=== PATIENT | female | born 1985 | race Caucasian/White ===

== ENCOUNTER 2021-11-20 07:53 | Day surgery (SDC) | payer OTHER, SELFPAY ==
[2021-11-20] VITALS (19 sets, daily range): BP systolic 84–132; BP diastolic 41–91; PULSE 75–104; RESP 16–20; TEMP 36–36.7; O2SAT 91–97; BMI 36.6
[2021-11-20] MEDS: LACTATED RINGERS 1000 ML 1,000 ML 100 ML IV (08:30)
[2021-11-20] MEDS: SODIUM CHLORIDE 0.9 % (FLUSH) 10 ML SYRINGE IVF (08:57)
--- NOTE | 2021-11-20 08:58 | SUR.PREOP ---
applied calming aromatherapy patch. pt routinely uses essential oils at home.
[2021-11-20 09:08] LABS: Ur HCG Qualitative* Negative (Negative)
--- NOTE | 2021-11-20 09:24 | PM.PROC ---
Procedure Note Time Seen by Provider: 09:10 Date Seen: 11/20/21 Date of procedure: 11/20/21 Will [facility] bill your pro fee for this procedure?: Yes Procedure Description: Preoperative diagnosis: 36-year-old 2 para 2 menometrorrhagia Postoperative diagnosis: Same Procedure: Total laparoscopic hysterectomy, bilateral salpingectomy, diagnostic cystoscopy, peritoneal biopsy.. Anesthesia: General endotracheal, local Surgeon: Francisca Christensen MD Assist: Brandy Mcqueen MD Estimated blood loss: 75mL. IV Fluid: 2200 mL Urine output: 50mL Drains: Mckinney to gravity Specimen: Uterus and bilateral fallopian tubes to pathology. Findings: On exam under anesthesia: The uterus was midposition, approximately 10-12 week size, mobile without nodularity or masses palpable. Adnexa without mass or fullness palpable. On laparoscopy: Uterus appeared enlarged otherwise normal. Fallopian tubes and ovaries appeared normal. Appendix, and liver edge appeared normal. Procedure: Halie was taken to the operating room where general anesthetic was found to be adequate. She was placed in the dorsal lithotomy position and an exam under anesthesia was performed with findings stated above. She was then prepped and draped in a normal sterile manner. A Mckinney catheter was placed. A bivalve speculum was placed in the vaginal canal. A long Allis clamp was placed on the anterior lip of the cervix, in the uterus sounded to 12 cm. A extra large VCare uterine manipulator was then placed. The Allis clamp and speculum were removed from the cervix. Attention was then turned to performing the laparoscopic portion of the procedure. All incisions were infiltrated with 0.25% Marcaine prior to incising the skin. A vertical, infraumbilical 1 cm incision was made. An 11 mm trocar was then placed under direct visualization. The abdomen was then insufflated with CO2 gas to a pressure of 15 mm of mercury. Two,, pelvic ports were then placed approximately 3-4 finger breaths medial to the ischial crests. The trocar in the RLQ = 5mm, LLq = 11mm. These were placed under direct visualization. Attention was then turned to performing the hysterectomy. Both ureters were visualized in the normal position bilaterally. The left fallopian tube was grasped and removed with sequential pedicles using the dissecting, PowerSeal blunt tip dissecting forceps. The left side of the hysterectomy was performed using the PowerSeal dissecting forceps. The 1st pedicles were starting with the broad ligament that was cauterized and and bisected. In sequence show pedicles were formed to divide the utero-ovarian ligament. Then sequential pedicles were made through the broad ligament. The posterior leaf of the broad ligament was then divided and sequential pedicles carried down to the level of the VCare cup. The anterior leaf of the broad ligament was then divided down to the level of the anterior aspect of the VCare cup and a bladder flap created. Prior to dividing the uterine vessels on the right side there is noted to be a bleb tissue in the right lower quadrant superior to the broad ligament on the pelvic sidewall that was removed sent to pathology The uterine vessels were then skeletonized. The uterine vessels were then cauterized and divided. Then excess tissue was cleared over the top of the VCare cup using the dissecting forceps. The right salpingectomy and right side of the hysterectomy were then performed in a similar manner. The Ligasure Valleylab pen with the spatula attachment was then used to perform the colpotomy incising around the VCare cup. The uterus was removed and the fundus placed in the vaginal canal to maintain insufflation. The vaginal cuff was then reapproximated using 2-0 V lock suture in a running manner. All the pedicles and vaginal cuff were then closely visualized and hemostasis obtained with bipolar cautery using the ligasure dissecting forceps or the Valleylab pen with the spatula. The the uterus was removed from the vaginal canal and sent to pathology. The Mckinney catheter was briefly removed. A diagnostic cystoscopy was performed using normal saline as the insufflation medium. The dome of the bladder was noted to be without injury and no evidence of any sutures from the vaginal cuff causing injury. Normal urine flow was noted through both ureteral orifices. Fluorescein IV was used to visualize the urine more easily. The Mckinney catheter was then replaced. Attention was then returned to the abdomen where hemostasis was verified. Pricilla was applied to the vaginal cuff. The CO2 pressure decreased to 8mmHG and hemostasis verified. The fascia in the LLQ incision was approximated with 0-Vicryl suture using the [place] fascial closure device. This was closed under direct visualization with the laparoscope. The fascia in the umbilical incision was reapproximated using 0 Vicryl on a UR 6 needle. All trocars were removed under direct visualization. CO2 gas was allowed to escape the infraumbilical port prior to its removal. All skin incisions were re-approximated using 4-0 Monocryl in a running subcuticular manner, Exophin skin adhesive gel and adhesive bandages placed. The patient tolerated this procedure well. Sponge, lap and instrument counts were correct x2 at the end of the procedure and the patient was taken to the recovery area in stable condition. The patient received 2gm IV ancef prior to the start of the procedure. 30 mg IV Toradol given at the end of the procedure prior to awaking the patient from anesthesia. Surgeon: Francisca Christensen MD
--- NOTE | 2021-11-20 10:16 | P.NB_ITS ---
Nerve Block Nerve Block Time Seen by Provider: 09:40 Date Seen: 11/20/21 Type of block requested by surgeon for post-operative analgesia: TAP Side: bilateral Time out performed: Yes Verification of patient name: Yes Verification of date of : Yes Site marking: site marked Name of person performing procedure: Daryl Continuous monitoring Was continuous monitoring of O2 sat, B/P, fast food restaurant manager, recorded every 15 minutes?: Yes Procedure Checklist: sterile prep, needles and gloves Ultrasound guided. Images saved: Yes Medications given in 5ml increments after negative aspiration: Marcaine %: 0.25 mL: 30 Needle gauge: 20 and Exparel mL: 10 Patient tolerated procedure well: Yes Additional comments: Needle noted adjacent to nerve
[2021-11-20] MEDS: CEFAZOLIN 2 GM in 0.9 % SODIUM CHLORIDE Mini-bag 100 ML IVPB (12:07)
--- NOTE | 2021-11-20 12:23 | W.ANESCHARGE ---
Anesthesia Charges Start Date/Time Anesthesia Start Date: 11/20/21 Anesthesia Start Time: 09:35 Stop Date/Time Anesthesia Stop Date: 11/20/21 Anesthesia Stop Time: 12:14 Summary Emergency: No
[2021-11-20] MEDS: fentaNYL 100 MCG/2 ML inj 50 MCG IVP ×3 (12:25→12:38)
--- NOTE | 2021-11-20 13:09 | SUR.PHASEI ---
Pt came to PACU with knutson intact draining clear yellow urine HAVING CRAMPING LIKE A PERIOD PAIN MEDS GIVEN VITALS STABLE DID NOT DRAIN KNUTSON TO HAVE MED/SURG DRAIN IT FOR THEIT I AND O AT END OF SHIFT
[2021-11-20] MEDS: HYDROmorphone 0.5 mg/0.5 ml inj IVP (13:10)
[2021-11-20] MEDS: LORazepam 2 MG/ML inj IVP ×2 (13:40→19:50)
[2021-11-20] MEDS: OXYCODONE 5 MG TABLET PO ×2 (14:35→19:50)
--- NOTE | 2021-11-20 15:08 | W.ANESCHARGE ---
Anesthesia Charges Start Date/Time Anesthesia Start Date: 11/20/21 Anesthesia Start Time: 09:35 Stop Date/Time Anesthesia Stop Date: 11/20/21 Anesthesia Stop Time: 12:14 Summary Emergency: No
[2021-11-20] MEDS: LACTATED RINGERS 1000 ML 1,000 ML 125 ML IV ×2 (16:48→22:12)
--- NOTE | 2021-11-20 17:00 | P.GYNPRC_ITS ---
Procedure Note Date Seen: 11/20/21 Procedure Details: PREOPERATIVE DIAGNOSIS: Menometrorrhagia POSTOPERATIVE DIAGNOSIS: Menometrorrhagia PROCEDURE: Total laparoscopic hysterectomy. Bilateral salpingectomies. Diagnostic cystoscopy. Peritoneal biopsy. SURGEON: Amparo CHIEF MARKETING OFFICER: Richar ANESTHESIA: General endotracheal COMPLICATIONS: None ESTIMATED BLOOD LOSS: See operative report by Dr. Christensen FINDINGS: See operative report by Dr. Christensen PROCEDURE NOTE: Please see the operative report by Dr. Nel Francis for full details of the procedure. I was asked to assist. I was scrubbed in for the entire procedure until closure of the abdominal incisions. I provided assistance with laparoscopic port placement, lysis of adhesions, visualization and retraction, and with the hysterectomy and bilateral salpingectomies from the right side, as well as with hemostasis and closure of the vaginal cuff.
[2021-11-20] MEDS: KETOROLAC 30 MG/ML inj IVP (18:29)
--- NOTE | 2021-11-20 19:46 | PC.NURSE ---
pt to floor at 1300. tolerating reg diet. has not been out of bed. c/o abd pain, see emar. soft pressures when pt arrived to the floor, BP has been stable, 110s/60s. Other VS WNL. Lap sites to abd glued, no drainage or signs of infection. knutson cath in place, patent and draining yellow urine. Delfin, Mom and Daughter have been in to visit with patient.
[2021-11-20] MEDS: ENOXAPARIN 40 MG/0.4 ML INJ SUBCUT (22:10)
[2021-11-21] MEDS: OXYCODONE 5 MG TABLET PO ×3 (00:39→09:52)
[2021-11-21] MEDS: KETOROLAC 30 MG/ML inj IVP (00:39)
[2021-11-21] MEDS: LACTATED RINGERS 1000 ML 1,000 ML 125 ML IV (00:40)
[2021-11-21] MEDS: IBUPROFEN 600 MG TABLET PO (05:56)
[2021-11-21] MEDS: HYDROmorphone 0.5 mg/0.5 ml inj IVP (06:17)
--- NOTE | 2021-11-21 06:31 | PC.NURSE ---
Alert and oriented x4. Vitals stable. Pain managed with Dilaudid and Oxycodone. Mckinney out early this AM. Ambulated on the hallway but distance limited due to pain. Excruciating pain managed with Dilaudid. Denies further concerns at the moment
[2021-11-21 07:00] VITALS: PULSE 78; RESP 16
[2021-11-21 07:30] VITALS: BP 110/79; PULSE 78; RESP 16; TEMP 36.7; O2SAT 97
[2021-11-21] MEDS: FLUOXETINE HCL 20 MG CAPSULE PO (09:53)
--- NOTE | 2021-11-21 10:01 | PC.NURSE ---
Addendum entered by Shraddha Kowalski RN 11/21/21 11:13: Pt. discharged at 1035. Belongings form and discharge instructions given and signed. Pt. verbalized understanding. Pt. ambulated off unit w/spouse to home. Original Note: Pt. alert and oriented, pleasant and cooperative. Pt. rated pain 4/10. PRN oxy administered before discharging. IV intact and removed at 0930. Vitals stable. Pt. requested to use Abd binder. Voided this AM. Ambulated to bathroom w/no assistance and tolerated well.
== END 2021-11-21 10:35 | disposition home or self-care (01) ==
LOC: OR 12:03 → MEDSURG 12:50
PROVIDERS: PCP Internal Medicine; Visit Provider Obstetrics & Gynecology
PROC: 0UT94ZZ Resection of Uterus, Percutaneous Endoscopic Approach (ICD-10-PCS; CPT 58571; principal; 2021-11-20 09:25)
DX: N92.1 Excessive and frequent menstruation with irregular cycle (principal); N72 Inflammatory disease of cervix uteri; N83.8 Other noninflammatory disorders of ovary, fallopian tube and broad ligament
CPT/HCPCS: 58571; 00840; 36415; 64488; 76942; 81025; 85018; 86850; 86900; 86901; 88305; 88307; A9270; J0330; J0690; J1100; J1170; J1650; J1885; J2060; J2704; J3010; J7120

== ENCOUNTER 2022-08-05 15:11 | Outpatient (CLI) | payer OTHER, SELFPAY | END 2022-08-05 15:12 | disposition home or self-care (01) | LOC: NFLDREF 08-06 12:29 | PROVIDERS: PCP Internal Medicine; Referring Provider Internal Medicine; Visit Provider Student in an Organized Health Care Education/Training Program | DX: Z20.822 Contact with and (suspected) exposure to COVID-19 (principal); J02.9 Acute pharyngitis, unspecified | CPT/HCPCS: 87651 ==

== ENCOUNTER 2023-07-06 15:15 | Emergency (ER) | payer BC, SELFPAY ==
[2023-07-06 15:23] VITALS: BP 133/75; PULSE 100; RESP 16; TEMP 37.9; O2SAT 97; BMI 30.7
--- NOTE | 2023-07-06 15:36 | ED_ITS ---
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 Last 3 days she has had 2nd chills dry cough body aches flu-like illness. She has had no shortness of breath no chest pain. She has had history of pulmonary embolus in the past but has had no breathing difficulty as mention. Patient denies skin rash denies nuchal rigidity. She apparently had a temp up to 103 but do here is 100.3 with ibuprofen on board. No dysuria, frequency, vomiting. Related Data Home Medications Medication Instructions Recorded Confirmed Collagen PO 11/06/21 08/14/22 ascorbic acid (vitamin C) 250 mg 250 mg PO DAILY 11/06/21 08/14/22 tablet Previous Rx's Medication Instructions Recorded ibuprofen 600 mg tablet 600 mg PO Q6H #30 tabs 11/20/21 hydrocodone 7.5 mg-acetaminophen 1 tab PO Q8H PRN pain #14 tabs 07/06/23 325 mg tablet oseltamivir 75 mg capsule (Tamiflu) 75 mg PO BID 5 days #10 caps 07/06/23 Allergies Allergy/AdvReac Type Severity Reaction Status Date / Time No Known Allergies Allergy Verified 07/06/23 15:21 Review of Systems Status of ROS: Reports: 6 or more systems reviewed and unremarkable except as noted in History and below [facility] Medical History History of pulmonary embolism (2013) ?Z86.711 - Personal history of pulmonary embolism (ICD-10) History of pre-eclampsia ?Z87.59 - Personal history of other complications of , childbirth and the puerperium (ICD-10) Atypical glandular cells on cervical Pap smear (02/02/15) ?R87.619 - Unspecified abnormal cytological findings in specimens from cervix uteri (ICD-10) Prothrombin gene mutation ?D68.52 - Prothrombin gene mutation (ICD-10) Vertigo ?R42 - Dizziness and giddiness (ICD-10) Uterine leiomyoma ?D25.9 - Leiomyoma of uterus, unspecified (ICD-10) Obesity with body mass index greater than 30 ?E66.9 - Obesity, unspecified (ICD-10) Menorrhagia with irregular cycle ?N92.1 - Excessive and frequent menstruation with irregular cycle (ICD-10) Hyperlipidemia (2019) ?E78.5 - Hyperlipidemia, unspecified (ICD-10) History of pulmonary embolism (2013) ?Z86.711 - Personal history of pulmonary embolism (ICD-10) History of pre-eclampsia ?Z87.59 - Personal history of other complications of , childbirth and the puerperium (ICD-10) Generalized anxiety disorder (2013) ?F41.1 - Generalized anxiety disorder (ICD-10) Dysfunctional uterine bleeding ?N93.8 - Other specified abnormal uterine and vaginal bleeding (ICD-10) Cyst of vagina ?N89.8 - Other specified noninflammatory disorders of vagina (ICD-10) Atypical glandular cells on cervical Pap smear (02/02/15) ?R87.619 - Unspecified abnormal cytological findings in specimens from cervix uteri (ICD-10) Surgical History Status post laparoscopic hysterectomy (11/20/21) ?Z90.710 - Acquired absence of both cervix and uterus (ICD-10) History of colposcopy (2015) ?Z98.890 - Other specified postprocedural states (ICD-10) History of colposcopy (2016) ?Z98.890 - Other specified postprocedural states (ICD-10) Social History Narrative: medical receptionist assistant. Nonsmoker and very little alcohol use. Smoking Status: Never smoker How often do you have a drink containing alcohol: 2-4 times a month AUDIT-C Alcohol total score: 2 Non-prescribed substance use: denies use and marijuana (any form) Exam Narrative: Exam Narrative: Objective: Temperature 100.2?, vital signs as written Alert orient x3 mild distress an illness noncyanotic HEENT is unremarkable no facial asymmetry mouth clear throat clear Neck is supple Chest is clear no rales or wheezing Heart rhythm regular without murmur Abdomen soft nontender Extremities are no edema neurologic nonfocal Skin no rash Const: Vital Signs, click to edit/add: Vital Signs - 24 hr 07/06/23 15:23 07/06/23 15:50 07/06/23 16:00 Temperature 100.2 F H Pulse Rate 101 H Pulse Rate [Pulse Oximeter] 100 98 Respiratory Rate 16 Blood Pressure 119/73 Blood Pressure [Ri ght Upper Arm] 133/75 Pulse Oximetry 97 92 95 Oxygen Delivery Me thod Room Air Room Air 07/06/23 16:30 Temperature Pulse Rate 86 Pulse Rate [Pulse Oximeter] Respiratory Rate Blood Pressure 119/66 Blood Pressure [Ri ght Upper Arm] Pulse Oximetry 91 Oxygen Delivery Me thod Course Vital Signs Vital signs: Initial Vital Signs Temperature 100.2 F H 07/06/23 15:23 Temperature Source Temporal Artery Scan 07/06/23 15:23 Pulse Rate 100 07/06/23 15:23 Respiratory Rate 16 07/06/23 15:23 Blood Pressure 133/75 07/06/23 15:23 Blood Pressure Mean 94 07/06/23 15:23 Blood Pressure Position Semi-Fowlers 07/06/23 15:23 Pulse Oximetry 97 07/06/23 15:23 Oxygen Delivery Method Room Air 07/06/23 15:23 Vital Signs Temperature 100.2 F H 07/06/23 15:23 Pulse Rate 100 07/06/23 15:23 Respiratory Rate 16 07/06/23 15:23 Blood Pressure 133/75 07/06/23 15:23 Pulse Oximetry 97 07/06/23 15:23 Oxygen Delivery Method Room Air 07/06/23 15:23 Temperature 100.2 F H 07/06/23 15:23 Pulse Rate 86 07/06/23 16:30 Respiratory Rate 16 07/06/23 15:23 Blood Pressure 119/66 07/06/23 16:30 Pulse Oximetry 91 07/06/23 16:30 Oxygen Delivery Method Room Air 07/06/23 15:50 Medications Administered Medications: Discontinued Medications Generic Name Dose Route Start Last Admin Trade Name Freq PRN Reason Stop Dose Admin Hydrocodone Bitart/Acetaminophen 1 tab 07/06/23 15:29 07/06/23 15:38 Hydrocodone/Acetamin 7.5-325 Tablet PO 07/06/23 15:30 1 tab ONCE ONE Administration Oseltamivir Phosphate 75 mg 07/06/23 15:29 07/06/23 15:38 Oseltamivir Phosphate 75 Mg Capsule PO 07/06/23 15:30 75 mg ONCE ONE Administration Medical Decision Making MDM Narrative Medical decision making narrative: [age] 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 I suspect she has influenza a. I think even if her tests are negative I would treat her with Tamiflu given she has only been sick for a couple of days I would give her 75 b.i.d. x5 days. Will give her [place] 7.5 mg now and allow her to have 14 of these at home, may use ibuprofen as well. Avoid Tylenol with the [place]. Recommend careful observation fluids and off work until better for couple of days. Recheck with regular doctor as needed, return to ED problems or concerns. Lab Data Labs: Lab Results 07/06/23 Range/Units 15:34 SARS-CoV-2 (PCR) Negative SARS-CoV-2 (Negative) Influenza Type A (PCR) Negative PCR FLU A (Negative) Influenza Type B (PCR) POSITIVE PCR FLU B A (Negative) RSV (PCR) Negative PCR RSV (Negative) Discharge Plan Discharge Clinical Impression: Influenza-like illness Patient Disposition: Home w/ Parent or Adult Condition: Stable Additional Instructions: Rest, fluids, [place] as needed for discomfort, may use ibuprofen as well. Recommend Tamiflu for 5 days. Recommend off work until your feeling well for a couple of days, update regular doctor as needed, return to ED as needed. Activity Level: Light activity Discharge Diet: Regular Prescriptions: New oseltamivir [Tamiflu] 75 mg capsule 75 mg PO BID 5 Days Qty: 10 0RF hydrocodone-acetaminophen 7.5-325 mg tablet 1 tab PO Q8H PRN (Reason: pain) Qty: 14 0RF No Action ascorbic acid (vitamin C) 250 mg tablet 250 mg PO DAILY Collagen powder PO ibuprofen 600 mg Tablet 600 mg PO Q6H Qty: 30 0RF Follow Up/Referrals: Edda Russ MD [Primary Care Provider] - Stand Alone Forms: PowerDMS Info Instructions
[2023-07-06] MEDS: OSELTAMIVIR PHOSPHATE 75 MG CAPSULE PO (15:38)
[2023-07-06] MEDS: HYDROCODONE/ACETAMIN 7.5-325 TABLET 1 TAB PO (15:38)
[2023-07-06 15:50] VITALS: PULSE 98; O2SAT 92
[2023-07-06 16:00] VITALS: BP 119/73; PULSE 101; O2SAT 95
[2023-07-06 16:28] LABS: PCR FLU A Negative PCR FLU A (Negative); PCR FLU B POSITIVE PCR FLU B (Negative); PCR RSV Negative PCR RSV (Negative); SARS PCR* Negative SARS-CoV-2 (Negative)
[2023-07-06 16:30] VITALS: BP 119/66; PULSE 86; O2SAT 91
== END 2023-07-06 16:37 | disposition home or self-care (01) ==
LOC: ED 15:45
PROVIDERS: Emergency Provider Family Medicine; PCP Internal Medicine
DX: J10.1 Influenza due to other identified influenza virus with other respiratory manifestations (principal)
CPT/HCPCS: 87631; 99283; A9270

== ENCOUNTER 2024-02-24 15:49 | Outpatient (CLI) | payer BC, SELFPAY ==
--- OUTSIDE RECORDS SUMMARY | 2024-02-24 15:53 | XMS_ITS | Clinical Summary ---
Author Organization [facility] Address [place], [place] [address] Care Team Providers Care Internal Affairs Investigator Name Role Phone Pcp, No Primary Care Provider Unavailabl e Allergies No known active allergies Medications Medication Sig Dispensed Refills Start Date End Date Status multivitamin (MVI) tabletIndications:Pulm onary embolism (HC) Take 1 tablet by mouth once daily. 0 01/07/2014 Active loratadine (CLARITIN) 10 mg tabletIndications:Seas onal allergies Take 1 tablet by mouth once daily. Take as needed 90 tablet 1 05/20/2014 Active omega-3 fatty acids-vitamin E (FISH OIL) 1,000 mg cap Take by mouth. 0 02/27/2015 Ac tive cholecalciferol (VITAMIN D) 1,000 unit capsule Take 1 capsule by mouth once daily. 0 02/27/2015 Active atenolol (TENORMIN) 25 mg tabletIndications:Hear t palpitations Take 1 tablet by mouth once daily. 90 tablet 1 02/27/2015 Active LORazepam (ATIVAN) 0.5 mg tabIndications:Anxiety Take 1/2-1 tablet by mouth every 8 hours as needed 15 tablet 0 03/27/2015 Active citalopram (CELEXA) 20 mg tabletIndications:Anxi ety TAKE 1 TABLET BY MOUTH ONCE DAILY. 30 tablet 0 08/15/2015 Active Active Problems Problem Noted Date Diagnosed Date Atypical glandular cells on cervical Pap smear 1 Overview (04/22/2015): [facility], ECC and Endometrial biopsy negative Cotesting at 12 and 24 months Pulmonary embolism 01/06/2014 Overview (01/11/2014): Several months after starting oral contraceptive pill Anticoagulation monitoring, INR range 2-3 2013 Seasonal allergies 02/02/2010 Mild dysplasia of cervix 07/15/2006 Mild or unspecified pre-eclampsia, antepartum Immunizations Name Administration Dates Next Due DTP 12/30/1991, 9,06/05/1987, 987,1986 Influenza, IIV3 (Age >=3 years) 04/03/2006 Influenza,LAIV4 Live Intrana frankie (Flumist) 02/27/2015 MMR 12/30/1991,01/18/1988 Tdap 12/31/2010 Tuberculin (PPD) 10/05/2008 Family History Medical History Relation Name Comments Diabetes Maternal Aunt Cancer-breast Maternal Grandmother also h ad uterine Stroke Mother PFO Relation Name Status Comments Maternal Aunt Maternal Grandmother Mother Social History Tobacco Use Types Packs/Day Years Used Date Smoking Tobacco: Never Smokeless Tobacco: Never Tobacco Cessation:Counseling Given: Yes Alcohol Use Standard Drinks/Week Comments No 0 (1 standard drink = 0.6 oz pure alcohol) occasioanl ETOH for holidays and family celebrations Sex and Gender Information Value Date Recorded Sex Assigned at Not on file Gender Identity Not on file Sexual Orientation Not on file Obstetrics History Para Term AB IAB SAB Ectopic Multiple Livin g Live Births 2 2 2 2 2 Date Outcome GA Total Labor Labor/2nd/3rd Weight Sex Type Anes PTL Iman A1 A5 Name Clin 2006 Term 40w 0d 24h 00m/ 3.86 kg (8 lb 8 oz) F Vag Epidur al Livin g Tawana Riple y Delivery Location:[place] Comments:bed rest for pre-eclampsia 1 Term 39w 0d 7h 00m/ 4 kg (8 lb 13 oz) F Vag Epidur al Livin g Deidra Riple y Delivery Location:[place] Comments:induction Last Filed Vital Signs Vital Sign Reading Time Taken Comments Blood Pressure 116/73 03/20/2015 11:13 AM GAS WELDING MACHINE OPERATOR Pulse 64 03/20/2015 11:13 AM GAS WELDING MACHINE OPERATOR Temperature 36.6 ??C (97.8 ??F) 02/27/2015 8:16 AM CD T Respiratory Rate 16 05/19/2014 1:00 PM GAS WELDING MACHINE OPERATOR Oxygen Saturation 98% 03/20/2015 10:45 AM GAS WELDING MACHINE OPERATOR Inhaled Oxygen Concentration - - Weight 84.4 kg (186 lb) 02/27/2015 8:16 AM CDT Height 165 cm (5' 4.96) 02/27/2015 8:16 AM CDT Body Mass Index 30.99 02/27/2015 8:16 AM CDT Plan of Treatment Health Maintenance Due Date Last Done Comments Depression screening for age 12+ 1998 BMI (ht and wt on same day) for age 18+ 2004 Hepatitis C screening for age 18-79 2004 Tetanus booster 12/31/2020 12/31/2010, 11/02 (Declined) COVID-19 vaccine series (2023- season) 2024 Influenza for age 9-49 01/04/2024 02/27/2015, 2005 Pap test for age 21-65 08/07/2024 , 08/07/2021, 05/13/2019, Additional history exists HIV for age 15-65 Completed 05/07/2010 Tdap Completed 12/31/2010 Pneumococcal series for age 6-64 Aged Out No longer eligible based on patient's age to complete this topic Procedures Procedure Name Priority Date/Time Associated Diagnosis Comments HPV HIGH RISK Routine 08/07/2021 1:00 PM CDT ANTI HIV 1/2 Routine 05/07/2010 11:38 AM GAS WELDING MACHINE OPERATOR Supervision of other normal from Last 3 Months or Most Recently Relevant to Health Maintenance Results * HPV HIGH RISK (08/07/2021 1:00 PM CDT) TYPE 16 Negative Negative 08/10/2021 1:38 PM CDT [facility] TYPE 18 Negative Negative 08/10/2021 1:38 PM CDT [facility] OTHER HIGH RISK TYPES Negative Negative 08/10/2021 1:38 PM CDT [facility] Other (Cervical/Vagina l) 08/07/2021 1:00 PM CDT 08/09/2021 9:46 AM CDT Narrative [facility] - 08/10/2021 1:38 PM CDT HPV types 16, 18, 31, 33, 35, 39, 45, 51, 52, 56, 58, 59, 66 and 68 DNA were undetectable or below the pre-set threshold. Methodology: Timothy Tejal 4800 HPV Test August Vicenta SCOTT [employer] [facility] [address] [place] [address], [place] * HIV (05/07/2010 11:38 AM GAS WELDING MACHINE OPERATOR) ANTI HIV 1/2 Non-reacti ve [facility] Blood specimen (specimen) BLOOD SPECIMEN / Unknown 05/07/2010 11:38 AM GAS WELDING MACHINE OPERATOR 05/07/2010 11:30 AM GAS WELDING MACHINE OPERATOR Susana Zimmerman MD SEND OUTS [facility] INTERNAL ZIP [id number] [address] from Last 3 Months or Most Recently Relevant to Health Maintenance Care Teams Internal Affairs Investigator Relationship Specialty Start Date End Date Pcp, No . PCP - General 10/20/15
== END 2024-02-24 15:50 | disposition home or self-care (01) ==
PROVIDERS: PCP Internal Medicine; Visit Provider Internal Medicine
DX: F41.1 Generalized anxiety disorder (principal); E78.5 Hyperlipidemia, unspecified; E66.9 Obesity, unspecified
CPT/HCPCS: 80053; 80061; 82306; 82550; 82728; 84443